=== PATIENT | male | born 1995 ===

== ENCOUNTER 2017-10-28 15:27 | Emergency (ER) | payer SELFPAY ==
[2017-10-28] MEDS ORDERED: Ketorolac Tromethamine 60 MG/2 ML VIAL ONE (15:38)
--- NOTE | 2017-10-28 15:56 | RAD ---
TWO VIEWS OF THE CHEST: 10/28/17 COMPARISON: None. HISTORY: Chest pain for a few days. FINDINGS: There is evidence of prior open reduction and internal fixation of the left clavicle. There is no pne umothorax, pleural fluid, focal consolidation, or alveolar edema. Heart and mediastinal contours appe ar within normal limits. No acute osseous abnormality. IMPRESSION: No acute findings. POS: [facility]
== END 2017-10-28 16:08 | disposition home or self-care (01) ==
LOC: ERS 15:27
DX: R07.89 Other chest pain (principal); F41.9 Anxiety disorder, unspecified; F32.9 Major depressive disorder, single episode, unspecified
CPT/HCPCS: 71046; 93005; 96372; J1885